=== PATIENT | male | born 1980 | race Caucasian/White ===

== ENCOUNTER 2016-06-19 20:54 | Emergency (ER) | payer MEDICARE ==
--- NOTE | ~2016-06-19 | ER ---
PATIENT'S NAME: HEATH ESQUIVEL [facility] AGE: 35 Y [address] ROOM: [place] [address] LOCATION: [facility] ADMIT DATE: 06/19/2016 ER/Outpatient Report DISCHARGE DATE: 06/19/2016 FAMILY PHYSICIAN: Physician, Unknown ATTENDING PHYSICIAN: Arnold Garcia TIME OF ARRIVAL: 2054 hours. TIME OF EVALUATION: 2100 hours. CHIEF COMPLAINT: Nausea, vomiting. HISTORY OF PRESENT ILLNESS: The patient is a 35-year-old male who presents to the emergency department today with a chief complaint of nausea and vomiting. He reports this started 24 hours prior to arrival. He reports he had too much to drink last night. He is drinking Fireball whiskey. He reports he has had vomiting 6-8 times a day and he has had several episodes of diarrhea as well. Denies any constipation. No fevers or chills. No urinary frequency, urgency, or painful urination. Denies any pain. No abdominal pain. Pain is 0/10. PAST MEDICAL HISTORY: Thyroid and anxiety. PAST SURGICAL HISTORY: None. SOCIAL HISTORY: The patient denies any tobacco, alcohol, or illicit drug use. ALLERGIES: RUBBING ALCOHOL. MEDICATIONS: None. REVIEW OF SYSTEMS: All systems are reviewed by myself are negative with the exception of those discussed in HPI and past medical history. PHYSICAL EXAMINATION: VITAL SIGNS: Weight 103.2 kg, blood pressure 154/110, pulse 108, respiratory PATIENT'S NAME: HEATH ESQUIVEL [facility] AGE: 35 Y [address] ROOM: [place] [address] LOCATION: [facility] ADMIT DATE: 06/19/2016 ER/Outpatient Report DISCHARGE DATE: 06/19/2016 FAMILY PHYSICIAN: Physician, Unknown ATTENDING PHYSICIAN: Arnold Garcia rate 20, temperature 97.9, and oxygen saturation 97% on room air. GENERAL: The patient is a 35-year-old female, appears stated age, in no acute distress at this time. HEENT: Head: Normocephalic, atraumatic. Pupils are equal, round, and reactive to light. Mucous membranes moist. NECK: Supple. There is no nuchal rigidity. CARDIOVASCULAR: Tachycardic. No murmurs, rubs, or gallops. LUNGS: Clear to auscultation bilaterally. No wheezes, rales, or rhonchi. ABDOMEN: Soft, nontender, and nondistended. No rebound, rigidity, or guarding. MUSCULOSKELETAL: The patient moves all 4 extremities. A 5/5 muscle strength. SKIN: Warm, dry. There are no rashes or lesions noted. LABS AND X-RAYS: Urinalysis is negative. CBC is unremarkable. CMP is unremarkable except for potassium 3.2, AST is 41, ALT is normal, and lipase is normal. IMPRESSION: 1. Nausea and vomiting. 2. Alcohol use. 3. Initial visit. EMERGENCY DEPARTMENT COURSE: The patient brought back to the examination room. Seen and evaluated by myself. IV is established. Laboratory analysis and imaging are obtained as described above. The patient is given a liter of normal saline and 4 mg of Zofran with significant improvement in the patient's symptoms. He has not vomited here in the emergency department. He is tolerating p.o. intake. We discussed results with the patient. He is given 60 mEq of potassium p.o. I have discussed return to care instructions including worsening symptoms or any other concerns return to emergency department as soon as possible. I have written a prescription for Zofran for home. I have asked he follows up with the primary care doctor in 2-3 days for reevaluation. I have discussed the different primary care doctor options here in the [place] area. The patient is agreeable and without further questions. DISPOSITION: The patient is discharged home in good condition. DO CED ROB/olul PATIENT'S NAME: HEATH ESQUIVEL [facility] AGE: 35 Y [address] ROOM: [place] [address] LOCATION: [facility] ADMIT DATE: 06/19/2016 ER/Outpatient Report DISCHARGE DATE: 06/19/2016 FAMILY PHYSICIAN: Physician, Unknown ATTENDING PHYSICIAN: Arnold Garcia /[id number] d: 06/20/16 0150 t: 06/23/16615, OUTPATIENT REPORT
[2016-06-19 21:32] LABS: BILIRUBIN URINE NEGATIVE (NEGATIVE); BLOOD URINE NEGATIVE /UL (NEGATIVE); COLOR URINE YELLOW (YELLOW); GLUCOSE URINE NEGATIVE (NEGATIVE); KETONE URINE NEGATIVE (NEGATIVE); LEUKOCYTES URINE NEGATIVE /UL (NEGATIVE); NITRITE URINE NEGATIVE (NEGATIVE); PH URINE 6.5 (4.0-8.0); PROTEIN URINE NEGATIVE (NEGATIVE); TURBIDITY URINE CLEAR (CLEAR); UROBILINOGEN URINE NORMAL (NORMAL)
[2016-06-19 21:42] LABS: BASOPHIL # 0.1 K/uL (0.0-0.2); BASOPHIL % 0.7 %; EOSINOPHIL % 0.2 %; HEMATOCRIT 46.4 % (37.0-53.0); HEMOGLOBIN 17.1 g/dL (12.0-17.0); IMMATURE GRANULOCYTE % 0.1 %; LYMPHOCYTE # 4.5 K/uL (0.8-4.0); LYMPHOCYTE % 47.1 %; MCHC 36.9 gm/dL (32.0-36.5); MCV 86.7 fl (83.0-98.0); MONOCYTE # 0.7 K/uL (0.0-1.0); MONOCYTE % 7.2 %; MPV 9.2 fl (9.4-12.4); NEUTROPHIL # (ANC) 4.3 K/uL (1.4-9.0); NEUTROPHIL % 44.7 %; NRBC % 0 /100WBC (0-0.00); PLATELET COUNT 315 K/uL (150-450); RBC 5.35 M/uL (4.00-6.00); RDW-CV 12.5 % (11.9-14.6); WBC 9.5 K/uL (4.0-11.0)
[2016-06-19 21:57] LABS: ALBUMIN 3.4 gm/dL (3.5-5.0); ALK PHOS 84 IU/L (33-138); ALT 59 IU/L (12-78); ANION GAP 12.2 (10.0-19.0); AST 41 IU/L (10-40); BLOOD UREA NITROGEN 11 mg/dL (6-24); CHLORIDE 105 mMol/L (96-110); CO2 26 mMol/L (22-32); CREATININE 1.2 mg/dL (0.6-1.3); ESTIMATED GFR (MDRD EQUATION) > 60; POTASSIUM 3.2 mMol/L (3.7-5.1); SODIUM 140 mMol/L (135-145); TOTAL BILIRUBIN 0.4 mg/dL (0.0-1.5); TOTAL PROTEIN 7.3 g/dL (6.0-8.4)
== END 2016-06-19 22:21 | disposition disaster alternative care site (69) ==
LOC: GMED 20:54
PROVIDERS: Emergency Medicine
DX: R11.2 Nausea with vomiting, unspecified (principal); F10.929 Alcohol use, unspecified with intoxication, unspecified; F41.9 Anxiety disorder, unspecified; E07.9 Disorder of thyroid, unspecified; Z91.048 Other nonmedicinal substance allergy status
CPT/HCPCS: J2405; J7030

== ENCOUNTER 2016-12-17 16:27 | Emergency (ER) | payer MEDICARE ==
--- NOTE | ~2016-12-17 | ER ---
PATIENT'S NAME: HEATH ESQUIVEL [facility] AGE: 36 Y [address] ROOM: [place] [address] LOCATION: ED ADMIT DATE: 12/17/2016 ER/Outpatient Report DISCHARGE DATE: 12/17/2016 FAMILY PHYSICIAN: PHYSICIAN, NO ATTENDING PHYSICIAN: Cas Medeiros Time of arrival: 1629. Time of exam: 1632. CHIEF COMPLAINT: Anxious, nausea. HISTORY OF PRESENT ILLNESS: The patient states he has been on a drinking binge for the last 3 days, has had approximately 750 mL of whiskey today, last drink 2 hours ago. States for the last hour and a half, he has felt quite anxious. He describes his anxiety as feeling as though there was an elephant sitting on his chest. Pressure just stays right in the mid chest area. Has not felt short of breath. He has had a cough, but he said that is not new for him. He just feels like he is ripping out of his skin, just does not feel well. He has been nauseated, but not vomited. Denies having fever or chills. He reports that there was a in the family that set off his drinking binge. ALLERGIES: NO KNOWN ALLERGIES. MEDICATIONS: No current medications. PAST MEDICAL HISTORY: Denies past medical history. PAST SURGICAL HISTORY: Negative. SOCIAL HISTORY: Denies the use of tobacco or drugs. Does drink alcohol as stated previously. REVIEW OF SYSTEMS: Are negative other than those mentioned in the HPI. PHYSICAL EXAMINATION: VITAL SIGNS: He weighed 112.9 kg, blood pressure is 130/78, pulse of 120, respirations 20, temperature of 98.2, and tympanic O2 saturation is 96% on PATIENT'S NAME: HEATH ESQUIVEL [facility] AGE: 36 Y [address] ROOM: [place], [place] [address] LOCATION: ED ADMIT DATE: 12/17/2016 ER/Outpatient Report DISCHARGE DATE: 12/17/2016 FAMILY PHYSICIAN: PHYSICIAN, NO ATTENDING PHYSICIAN: Cas Medeiros room air. GENERAL: He is awake, alert, and oriented x4. SKIN: [place], warm, and dry. RESPIRATIONS: Even and nonlabored. Pupils are equal and reactive to light. Extraocular movement is intact. TMs are pearly perez. Nasal is boggy. Oropharynx is clear. NECK: Supple. No lymphadenopathy. LUNGS: Lung sounds are clear throughout. HEART: Regular rate and rhythm. Tachycardic. ABDOMEN: Soft and nondistended. Bowel sounds are present. NEUROLOGIC: He walks with a steady even gait. The patient was given Zofran 4 mg ODT and lorazepam 0.5 mg p.o. EKG was completed. It shows a sinus rhythm. LABORATORY DATA: CBC is within normal limits. Chem panel: Sodium is 139, potassium is 3.4, chloride 105. His BUN was 2 with a creatinine of 1.1. Total bilirubin was 0.4. His AST is 54 with an ALT of 95. His alcohol was 0.133. Cardiac enzymes were negative. Lactate was 2.1. Procalcitonin was normal. Clean- catch UA was obtained. It was negative for infection. Negative for drugs. D- dimer was negative. Magnesium was 2.1. EMERGENCY DEPARTMENT COURSE: Saline lock was started and the patient was given a banana bag of fluids. Compazine 10 mg IV. He continued to have some symptoms of anxiety he said. He was given Benadryl 25 mg IV. Rested comfortably in the room. Had no increase in discomfort. IMPRESSION: 1. Anxiety. 2. EtOH abuse. PLAN: Home, rest. He is to stop drinking alcohol. Increase his regular fluids. If he continues to have problems, he needs to follow up with primary provider in the next 1 to 2 days. He verbalized understanding. RIGO CHRISTIE APRN FOR MD RAFA TREJO/melissa PATIENT'S NAME: HEATH ESQUIVEL [facility] AGE: 36 Y [address] ROOM: [place] [address] LOCATION: [facility] ADMIT DATE: 12/17/2016 ER/Outpatient Report DISCHARGE DATE: 12/17/2016 FAMILY PHYSICIAN: PHYSICIAN, NO ATTENDING PHYSICIAN: Cas Medeiros /[id number] d: 12/18/16 0218 t: 12/22/16 0750, OUTPATIENT REPORT
[2016-12-17 16:57] LABS: BILIRUBIN URINE NEGATIVE (NEGATIVE); BLOOD URINE NEGATIVE /UL (NEGATIVE); COLOR URINE STRAW (YELLOW); GLUCOSE URINE NEGATIVE (NEGATIVE); KETONE URINE NEGATIVE (NEGATIVE); LEUKOCYTES URINE NEGATIVE /UL (NEGATIVE); NITRITE URINE NEGATIVE (NEGATIVE); PH URINE 6.5 (4.0-8.0); PROTEIN URINE NEGATIVE (NEGATIVE); SPEC GRAVITY URINE 1.005 (1.003-1.035); TURBIDITY URINE CLEAR (CLEAR); UROBILINOGEN URINE NORMAL (NORMAL)
[2016-12-17 17:17] LABS: COCAINE NEGATIVE (NEGATIVE); OPIATES NEGATIVE (NEGATIVE)
[2016-12-17 17:18] LABS: AMPHETAMINE NEGATIVE (NEGATIVE)
[2016-12-17 17:19] LABS: BARBITURATE NEGATIVE (NEGATIVE)
[2016-12-17 17:23] LABS: BASOPHIL # 0.1 K/uL (0.0-0.2); BASOPHIL % 1.1 %; EOSINOPHIL % 0.5 %; HEMATOCRIT 48.8 % (37.0-53.0); HEMOGLOBIN 18.2 g/dL (12.0-17.0); IMMATURE GRANULOCYTE % 0.4 %; LYMPHOCYTE # 3.6 K/uL (0.8-4.0); LYMPHOCYTE % 43.6 %; MCHC 37.3 gm/dL (32.0-36.5); MCV 85.8 fl (83.0-98.0); MONOCYTE # 0.7 K/uL (0.0-1.0); MONOCYTE % 7.9 %; MPV 9.5 fl (9.4-12.4); NEUTROPHIL # (ANC) 3.9 K/uL (1.4-9.0); NEUTROPHIL % 46.5 %; NRBC % 0 /100WBC (0-0.00); PLATELET COUNT 326 K/uL (150-450); RBC 5.69 M/uL (4.00-6.00); RDW-CV 12.6 % (11.9-14.6); WBC 8.4 K/uL (4.0-11.0)
[2016-12-17 17:43] LABS: ALBUMIN 3.4 gm/dL (3.5-5.0); ALK PHOS 110 IU/L (33-138); ALT 95 IU/L (12-78); ANION GAP 14.4 (10.0-19.0); AST 54 IU/L (10-40); BLOOD UREA NITROGEN 2 mg/dL (6-24); CALCIUM 8.5 mg/dL (8.5-10.5); CHLORIDE 105 mMol/L (96-110); CO2 23 mMol/L (22-32); CPK 153 IU/L (35-332); CREATININE 1.1 mg/dL (0.6-1.3); POTASSIUM 3.4 mMol/L (3.7-5.1); SODIUM 139 mMol/L (135-145); TOTAL BILIRUBIN 0.4 mg/dL (0.0-1.5); TOTAL PROTEIN 7.8 g/dL (6.0-8.4)
== END 2016-12-17 19:23 | disposition disaster alternative care site (69) ==
LOC: GMED 16:27
PROVIDERS: Nurse Practitioner Family
DX: F41.9 Anxiety disorder, unspecified (principal); F10.10 Alcohol abuse, uncomplicated
CPT/HCPCS: G0480; J0780; J1200; J3411; J7030